=== PATIENT | female | born 2000 | race Caucasian/White ===

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

== ENCOUNTER 2021-01-06 14:07 | Outpatient (CLI) | payer MEDICAID | END 2021-01-06 14:08 | disposition left against medical advice (07) | LOC: EMS 14:07 | DX: S09.93XA Unspecified injury of face, initial encounter (principal); S89.92XA Unspecified injury of left lower leg, initial encounter; W01.0XXA Fall on same level from slipping, tripping and stumbling without subsequent striking against object, initial encounter; Y93.01 Activity, walking, marching and hiking; Y92.512 Supermarket, store or market as the place of occurrence of the external cause ==

== ENCOUNTER 2021-01-23 11:15 | Emergency (ER) | payer MEDICAID ==
[2021-01-23 11:32] VITALS: BP 146/92
[2021-01-23] MEDS ORDERED: METOCLOPRAMIDE 10 MG TABLET PO STA (12:09)
--- NOTE | 2021-01-23 12:11 | ED Physician Documentation ---
History of Present Illness - Stated complaint Stated Complaint: HEADACHES - Chief complaint Chief Complaint: General - History obtained from History obtained from: Patient, Family - Additonal information Additional information: 21-year-old woman presents accompanied by her mom after referral from PCP for headaches. She has a history of cerebral palsy, developmental delay. 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 She has occasional headaches but has had a more significant headache over the last week on the left side associated with no nausea or photophobia. They have tried sumatriptan and Toradol at home without relief. 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, Other - Present Medications Home Medications: Ambulatory Orders Medication Instructions Recorded Confirmed Ibuprofen 600 mg PO PRN PRN 09/02/15 02/01/20 Medroxyprogesterone Acetate 150 mg IM ONCE 09/02/15 02/01/20 [Depo-Provera] Hydroxyzine HCl 50 mg PO PRN PRN 12/23/15 02/01/20 Ondansetron Odt [Zofran] 4 mg TL Q6H PRN #10 tablet 08/06/19 02/01/20 Ketorolac [Toradol] 10 mg PO Q6H PRN 02/01/20 02/01/20 Metoclopramide [Reglan] 10 mg PO Q6H PRN #20 tablet 01/23/21 - Allergies Allergies/Adverse Reactions: Allergies Allergy/AdvReac Type Severity Reaction Status Date / Time phenytoin sodium * Allergy Severe Rash Verified 01/23/21 11:32 [From Dilantin] phenytoin sodium extended * Allergy Severe Rash Verified 01/23/21 11:32 [From Dilantin] clindamycin Allergy Rash Verified 01/23/21 11:32 - Social History Does the pt smoke?: No Smoking Status: Never smoker Does the pt drink ETOH?: No Does the pt have substance abuse?: No - Immunizations Immunizations are current?: Yes - POLST Patient has POLST: No PD ED PE NORMAL - Vitals Vital signs reviewed: Yes - General General: Other (Pleasant, developmentally delayed) - HEENT HEENT: PERRL, EOMI - Neck Neck: Supple, no meningeal sign, No bony TTP - Neuro Neuro: Alert and oriented X 3, 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 Her mental status is normal. Her exam shows I think just chronic neurologic findings. CT of the head and shuntogram demonstrates that there is a very low volume of fluid in the ventricular system, which may be suggestive of CSF hypotension indicating over shunting. A call was placed to [facility] to consult with her neurosurgeon. She was feeling better after oral Reglan. I discussed the case with the nurse practitioner on-call for [facility] neurosurgery and she will arrange for follow-up but there is no urgency to that. Departure - Departure Disposition: 01 Home, Self Care Clinical Impression: Persistent headaches Condition: Good Record reviewed to determine appropriate education?: Yes Instructions: ED Cephalgia Unspecified Prescriptions: Metoclopramide [Reglan] 10 mg PO Q6H PRN #20 tablet PRN Reason: nausea or headache Comments: There is a possibility that your shunt is over shunting, this would cause headaches but is not necessarily an emergency. I did discuss the case with [facility] and they plan to contact you for an appointment with your neurosurgeon to discuss. Return if worse.
--- NOTE | 2021-01-23 13:07 | CT Report ---
PROCEDURE: HEAD WO INDICATIONS: shunt, headache TECHNIQUE: Noncontrast 4.5 mm thick angled axial sections acquired from the foramen magnum to the vertex. For r adiation dose reduction, the following was used: automated exposure control, adjustment of mA and/or kV according to patient size. COMPARISON: None. FINDINGS: Images demonstrate post surgical changes of left pterional and parietal valeria holes. There is shunt tu dilan in the left frontal lobe which does not definitively communicate with the ventricular system. The ventricular system is low volume, with slitlike lateral ventricles nearly imperceptible. The thir d ventricle is also low in volume. The aqueduct and fourth ventricle are patent. The basilar cisterns are mildly effaced which may be due to brain sagging in the setting of CSF hypotension. Right to lef t midline shift is present at the level of the septum pellucidum and third ventricle, measuring a max imum of approximately 2.4 cm. No definite evidence of ventricular entrapment. There is some volume lo ss in the left cerebral cortex which may contribute to the shift. There is no evidence of an abnormal extra-axial fluid collection or acute intracranial hemorrhage. In the right cerebral hemisphere, mooney-white matter differentiation is maintained with no CT evidence o f acute infarct. There appears to be some thickened potentially heterotopic or dysplastic mooney matter in the left cere bral hemisphere with a lower than expected amount of white matter. Still, there is no evidence of cyt otoxic edema in the left cerebral hemisphere currently. Expansion of the diploic space throughout the calvarium, presumably reflective of phenytoin use in th is patient. No acute or suspicious osseous lesion. IMPRESSION: Post surgical changes of left sided bur holes. Shunt tubing in the left frontal lobe which does not definitively connected with the ventricular syst em. Very low volume of the ventricular system and additional findings suggestive of CSF hypotension m ay indicate over shunting. 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 Comparison with any prior outside study to assess for interval change in caliber of the ventricular s ystem. Reviewed by: David Valadez MD on 01/23/2021 1:05 PM PST Approved by: David Valadez MD on 01/23/2021 1:05 PM PST Station ID: [id number]
--- NOTE | 2021-01-23 13:08 | XRAY Report ---
PROCEDURE: Shuntogram INDICATIONS: shunt, headache TECHNIQUE: AP and lateral views of the head and neck and AP views of chest and abdomen were obtained for HOTHOUSE WORKER shunt evaluation. COMPARISON: Chest radiograph dated 10/15/2015. FINDINGS: There is a left-sided ventriculoperitoneal shunt catheter extending from right left frontal parietal region along lateral aspect of left chest and abdomen with tip in lower pelvis just to the right of m idline. The catheter appears continuous throughout its length without fracture. Markedly air distended bilateral frontal sinuses are seen. No gross skull fracture. Postsurgical swanson ges are seen in left frontal temporal parietal calvarium. There is no focal infiltrate, pleural effusion or pneumothorax. Heart size is normal. Bowel gas pattern is nonobstructive. No gross peritoneal free air is seen. IMPRESSION: 1. Left-sided HOTHOUSE WORKER shunt catheter appears intact. 2. No acute cardiopulmonary pathology. 3. No evidence of bowel obstruction no gross peritoneal free air. 4. Markedly air distended bilateral frontal sinuses and possibly ethmoid sinuses likely represent con genital process. Reviewed by: Sonny Brown MD on 01/23/2021 1:07 PM PST Approved by: Sonny Brown MD on 01/23/2021 1:07 PM PST Station ID: [id number]
== END 2021-01-23 13:51 | disposition home or self-care (01) ==
LOC: ED 11:15
DX: R51.9 Headache, unspecified (principal); Z98.2 Presence of cerebrospinal fluid drainage device; G80.9 Cerebral palsy, unspecified; G40.909 Epilepsy, unspecified, not intractable, without status epilepticus
CPT/HCPCS: 70450; 75809; 99283; 99284; A9270; 80053; 83690; 85025

== ENCOUNTER 2021-02-02 14:48 | Outpatient (CLI) | payer MEDICAID ==
--- NOTE | 2021-02-02 15:26 | SLEEP CARE CONSULTATION ---
Information from patient questionnaire entered by Zheng Shea. I have reviewed and concur with the information entered by Zheng Shea. This document represents the service I personally performed and the decisions made by me, Caroline Hunt MD, [facility]. History of Present Illness Service Date and Time: 02/02/2021 1448 Reason for Visit: New patient Chief Complaint: reports: Snoring, Excessive daytime sleepiness, Observed pauses in breathing Usual bedtime: 9 PM Time it takes to fall asleep: 20 - 30 minutes Snores at night: Yes Observed to quit breathing while asleep: Yes Number of times waking at night: 3 Reasons for waking at night: reports: Snoring, Gasping for air, Pain, Bathroom Toss, Turn, or Twitch while sleeping: Yes Recalls having dreams: Yes Usually gets out of bed at: 7 AM Feels refreshed in the morning: No Morning headache: Yes Sleepy or fatigued during the day: Yes Ever fallen asleep while driving: No Takes day naps: Yes Prior sleep studies: No Additional HPI information: I have the pleasure of seeing Ms. Hale along with her mother today regarding the possibility of her having obstructive sleep apnea. As you know, she is a 21 year old girl who complains of excessive daytime sleepiness. Her mother reports seeing her stop breathing at night. She also has morning headache. She sleeps 10 hours at night and takes 2-hour nap during the day. 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 Patient is Single and lives in [place]. Have you smoked in the past 12 months: No Alcohol use: No Caffeine use: Yes Caffeine amount and frequency: 3 to 4 a week Family History Family Hx Sleep Apnea: Grandparent: Sleep apnea - Untreated Allergies and Home Medications Drug allergies reviewed: Yes (dilantin and clindamycin) Home medication list reviewed: Yes (metoclopramide, Depo-Provera, Ketorolac, hydroxyzine) Review of Systems Neurological: reports: headaches, seizure, gait or balance problems Ear/Nose/Throat: reports: tonsillectomy Musculoskeletal: reports: mobility problems Physical Exam Blood Pressure: 129/91 Cuff size: regular Heart Rate: 96 O2 Saturation: 98 Height: 5 ft 3 in Weight: 280 lb Body Mass Index: 49.6 BMI Classification: Morbidly Obese Neck circumference: 19 Mood/affect: abnormal Nostrils: patent to airflow Turbinates: normal Septum: midline Mouth and throat: narrow oropharynx Soft palate: long Hard palate: normal Uvula: normal Uvula visualization: 25% Mallampati Class III Tongue: normal in size Tonsils: absent bilaterally Chin and jaw: normal size and position Neck: normal w/o lymphadenopathy or thyromegaly Heart: regular rate and rhythm Lungs: clear bilaterally Extremities: no edema or clubbing Impression and Plan IMPRESSION: 1. Obstructive Sleep Apnea-Hypopnea Syndrome, as evident by history of loud and irregular snoring, observed cessation of breath while asleep, frequent awakenings during the night, morning headache, unrefreshed sleep, and daytime hypersomnolence. Narrow oropharynx and obesity are common predisposing factors for obstructive sleep apnea-hypopnea syndrome. I recommend proceeding to polysomnography to confirm the diagnosis and to assess severity. If she has significant sleep disordered breathing, a manual CPAP titration study will also be performed to find the optimal treatment pressure. I informed the patient of what the sleep studies involve and after some discussion, she would like to first have a home sleep apnea test (HSAT), Plan: 1. Schedule a home sleep apnea test (HSAT). 2. Attempt to lose weight. 3. Return for follow up after the test. Visit Type: In Office Time Spent with Patient (minutes): 15 Provider Statement: I spent 100% of the Face to Face Visit with the patient with greater than 50% spent counseling the patient and coordination of care.
[2021-02-02 15:27] VITALS: BP 129/91
== END 2021-02-02 14:49 | disposition home or self-care (01) ==
LOC: SC 14:48
PROVIDERS: ATTEND Internal Medicine Pulmonary Disease
DX: G47.10 Hypersomnia, unspecified (principal); R06.81 Apnea, not elsewhere classified; R51.9 Headache, unspecified; G47.8 Other sleep disorders; E66.01 Morbid (severe) obesity due to excess calories; Z68.42 Body mass index [BMI] 45.0-49.9, adult
CPT/HCPCS: 99202; 99212

== ENCOUNTER 2021-02-23 08:10 | Outpatient (CLI) | payer MEDICAID ==
--- OUTSIDE RECORDS SUMMARY | 2021-02-25 02:57 | EXTERNAL MEDICAL SUMMARY RPT | Continuity of Care Document ---
:2000 Demographics Phone Unavailable Preferred Language Unknown Marital Status Unknown Adventism Affiliation Unknown Race Unknown Ethnic Group Unknown Author Organization [facility] Address [address] [place] [address] Phone Social History date description facility [phone]
== END 2021-02-23 08:11 | disposition home or self-care (01) ==
LOC: SC 08:10
PROVIDERS: ATTEND Internal Medicine Pulmonary Disease
DX: G47.33 Obstructive sleep apnea (adult) (pediatric) (principal); R09.02 Hypoxemia; E66.9 Obesity, unspecified; Z68.42 Body mass index [BMI] 45.0-49.9, adult
CPT/HCPCS: 95806

== ENCOUNTER 2021-03-02 14:49 | Outpatient (CLI) | payer MEDICAID ==
--- NOTE | 2021-03-02 15:15 | SLEEP CARE CONSULTATION ---
Information from patient questionnaire entered by Zheng Shea. I have reviewed and concur with the information entered by Zheng Shea. This document represents the service I personally performed and the decisions made by me, Caroline Hunt MD, [facility]. History of Present Illness Service Date and Time: 03/02/2021 1449 Initial [place] Sleepiness Scale score: 19 (in 2020) Current [place] Sleepiness Scale score: 10 Additional HPI information: HPI: Ms. Hale returned for follow up of the sleep study she had on 02/23/2021. The test showed mild obstructive sleep apnea-hypopnea with an AHI of 7.3 and aura oxygen saturation of 77%. The respiratory events occurred independently of sleep stage and body position. Baseline oxygen saturation was normal. The patient was informed of these findings. I explained to her the pathophysiology behind obstructive sleep apnea. We then spent quite a bit of time discussing different treatment options. For mild obstructive sleep apnea, surgery and oral appliance are alternatives to nasal CPAP therapy but in moderate or severe cases, nasal CPAP is the most effective and reliable treatment. She already had tonsillectomy. After some discussion, she opted to go with the nasal CPAP therapy. I explained to her how CPAP machine works and what to expect when using the machine. Sleep Study - Results Type of Sleep Study: Home sleep study Prior sleep studies: No Allergies and Home Medications Drug allergies reviewed: Yes Home medication list reviewed: Yes Review of Systems Review of systems same as previous: Yes Physical Exam Height: 5 ft 3 in Weight: 280 lb Body Mass Index: 49.6 BMI Classification: Morbidly Obese Impression and Plan IMPRESSION: 1. Obstructive Sleep Apnea-Hypopnea Syndrome, mild, associated with moderate hypoxemia. Possibly, this is the cause of the patients symptoms of unrefreshed sleep, and excessive daytime sleepiness. As mentioned above, the patient will be started on an autoCPAP set between 5 and 15 cmH2O. Depending on her response and compliance she may be brought back for an overnight CPAP titration study. PLAN: 1. Prescription made for an autoCPAP, heated humidifier, and related supplies. 2. Attempt to lose weight. 3. Return for follow up after one month of using the CPAP. Counseling Topics: Weight control Visit Type: In Office Other Participants: Other (mother) Time Spent with Patient (minutes): 15 Provider Statement: I spent 100% of the Face to Face Visit with the patient with greater than 50% spent counseling the patient and coordination of care.
== END 2021-03-02 14:50 | disposition home or self-care (01) ==
LOC: SC 14:49
PROVIDERS: ATTEND Internal Medicine Pulmonary Disease
DX: G47.33 Obstructive sleep apnea (adult) (pediatric) (principal); E66.01 Morbid (severe) obesity due to excess calories; Z68.42 Body mass index [BMI] 45.0-49.9, adult
CPT/HCPCS: 99212

== ENCOUNTER 2021-05-11 09:46 | Outpatient (CLI) | payer MEDICAID ==
--- NOTE | 2021-05-11 10:43 | SLEEP CARE CONSULTATION ---
Information from patient questionnaire entered by Delmi Melendez. I have reviewed and concur with the information entered by Delmi Melendez. This document represents the service I personally performed and the decisions made by me, Caroline Hunt MD, [facility]. History of Present Illness Service Date and Time: 05/11/2021 0946 Previous diagnosis: Mild, Obstructive Sleep Apnea-Hypopnea Syndrome AHI: 7.3 (in 2020) Reason for follow up: first compliance Equipment type: CPAP Equipment obtained from: Other ([facility]) Mask style: Nasal Prior sleep studies: Yes Year and Where: 2020 - [facility] Type of Sleep Study: Home sleep study HPI additional information: HPI: Ms. Hale returned today with her mother for follow up of nasal CPAP therapy. She was diagnosed to have mild obstructive sleep apnea-hypopnea syndrome. The patient went to [facility] for the equipment and was fitted with a Respironics DreamWear nasal cushion mask.. She reports using the device nightly and all through the night. The compliance report shows usage in 30 nights out of the past 30 nights, averaging 7 hours a night. She complained of no particular problem with the device such as soreness on the face, dry nose, epistaxis, nasal congestion or headache. She thinks that the pressure of 5 - 15 cmH2O is comfortable. On the CPAP therapy she notices improvement in her sleep quality, and that she wakes up feeling fresher in the morning and more awake/alert during the day. The [place] Sleepiness Scale score 4. Her mother notices no snore at all. The average residual AHI is 0.2; and air leak, 0.2 L/min. The 90th percentile pressure is 12.2 cmH2O. CPAP Compliance Data - Data Reviewed with Patient Average duration of nightly device use: 7 hr Compliance rate %: 100 Current pressure setting (cmH2O): 5-15 Humidity settin Average residual AHI: 0.2 Subjective Current pressure setting perceived as: comfortable Initial [place] Sleepiness Scale score: 19 (in 2020) Current [place] Sleepiness Scale score: 4 Allergies and Home Medications Drug allergies reviewed: Yes Home medication list reviewed: Yes Review of Systems Review of systems same as previous: Yes Physical Exam Height: 5 ft 3 in Weight: 303 lb Body Mass Index: 53.6 BMI Classification: Morbidly Obese Impression and Plan IMPRESSION: 1. Obstructive Sleep Apnea-Hypopnea Syndrome, mild, with the patient doing well on nasal CPAP therapy. She has excellent compliance and significant clinical improvement. The current pressure appears effective and comfortable. Overall, she is very satisfied with treatment and plans to continue with it long-term. No adjustment is necessary today. PLAN: 1. Continue with autoCPAP set at 5 - 15 cmH2O. 2. Try to lose weight 3. Try other masks and nasal pillows. 4. Return in one year for follow up or earlier if there is any problem with the treatment. Follow up recommended for: Weight management Visit Type: In Office Time Spent with Patient (minutes): 15 Provider Statement: I spent 100% of the Face to Face Visit with the patient with greater than 50% spent counseling the patient and coordination of care.
== END 2021-05-11 09:47 | disposition home or self-care (01) ==
LOC: SC 09:46
PROVIDERS: ATTEND Internal Medicine Pulmonary Disease
DX: G47.33 Obstructive sleep apnea (adult) (pediatric) (principal); E66.01 Morbid (severe) obesity due to excess calories; Z68.43 Body mass index [BMI] 50.0-59.9, adult
CPT/HCPCS: 99212

== ENCOUNTER 2022-09-29 14:45 | Emergency (ER) | payer MEDICAID ==
[2022-09-29 15:28] LABS: BASOPHILS % (AUTO) 0.1 %; HCT - HEMATOCRIT 41.1 % (37.0-47.0); HGB - HEMOGLOBIN 13.7 g/dL (12.0-16.0); LYMPHOCYTES # (AUTO) 3.1 10^3/uL (1.5-3.5); LYMPHOCYTES % (AUTO) 38.3 %; MEAN CORPUSCULAR HEMOGLOBIN 26.9 pg (27.0-31.0); MEAN CORPUSCULAR HGB CONC 33.3 g/dL (32.0-36.0); MEAN CORPUSCULAR VOLUME 80.7 fL (81.0-99.0); MEAN PLATELET VOLUME 8.8 fL (7.9-10.8); MONOCYTES # (AUTO) 0.3 10^3/uL (0.0-1.0); MONOCYTES % (AUTO) 3.5 %; NEUTROPHILS # (AUTO) 4.7 10^3/uL (1.5-6.6); NEUTROPHILS % (AUTO) 57.7 %; PLT - PLATELET COUNT 270 10^3/uL (130-450); RED BLOOD COUNT 5.09 10^6/uL (4.20-5.40); RED CELL DISTRIBUTION WIDTH 13.8 % (12.0-15.0); WHITE BLOOD COUNT 8.1 x10^3/uL (4.8-10.8)
[2022-09-29 15:43] LABS: ALBUMIN 4.1 g/dL (3.2-5.5); ALBUMIN/GLOBULIN RATIO 1.4 (1.0-2.2); BILIRUBIN,TOTAL 0.4 mg/dL (0.2-1.0); CALCIUM 9.2 mg/dL (8.5-10.3); CREATININE 0.8 mg/dL (0.4-1.0); POTASSIUM 3.7 mmol/L (3.5-5.0); TOTAL PROTEIN 7.1 g/dL (6.7-8.2)
--- NOTE | 2022-09-29 17:51 | ED Physician Documentation ---
History of Present Illness - Stated complaint Stated Complaint: ABD PX - Chief complaint Chief Complaint: Abd Pain - Additonal information Additional information: 22-year-old female who is developmentally delayed presents to the emergency de partment with her mom for evaluation of 4 days right upper quadrant abdominal pain. No fevers no vomiting no diarrhea. They did go to a local walk-in clinic and were reportedly told that the urine showed no concerns but given the location of the pain was advised to come to the ER for a gallbladder rule out. Patient has no pertinent past surgical history. She appears well and per mom she is behaving at her usual baseline. No melena or hematochezia. No dysuria urgency or frequency. Review of Systems Constitutional: denies: Fever Eyes: reports: Reviewed and negative Throat: reports: Reviewed and negative Cardiac: reports: Reviewed and negative Respiratory: reports: Reviewed and negative GI: reports: Abdominal Pain. denies: Nausea, Vomiting : reports: Reviewed and negative Skin: reports: Reviewed and negative PD PAST MEDICAL HISTORY - Past Medical History Past Medical History: Yes Cardiovascular: None Respiratory: None Neuro: Seizure disorder, Other Endocrine/Autoimmune: None GI: None CONE TRUCKER: None : None HEENT: None Psych: None Musculoskeletal: Hemiplegia Derm: None Other Past Medical History: cerebral palsy - Past Surgical History Past Surgical History: Yes Neuro: CERTIFIED MEDICAL TECHNICIAN shunt, Other - Present Medications Home Medications: Ambulatory Orders Medication Instructions Recorded Confirmed No Known Home Medications 09/29/22 09/29/22 - Allergies Allergies/Adverse Reactions: Allergies Allergy/AdvReac Type Severity Reaction Status Date / Time phenytoin sodium * Allergy Severe Rash Verified 09/29/22 15:09 [From Dilantin] phenytoin sodium extended * Allergy Severe Rash Verified 09/29/22 15:09 [From Dilantin] clindamycin Allergy Rash Verified 09/29/22 15:09 - Social History Does the pt smoke?: No Smoking Status: Never smoker Does the pt drink ETOH?: No Does the pt have substance abuse?: No - Immunizations Immunizations are current?: Yes - POLST Patient has POLST: No PD ED PE NORMAL - General General: Alert and oriented X 3, No acute distress, Well developed/nourished (Morbidly obese) - HEENT HEENT: Atraumatic, Moist mucous membranes - Neck Neck: Supple, no meningeal sign, No adenopathy - Cardiac Cardiac: RRR, No murmur - Respiratory Respiratory: No respiratory distress, Clear bilaterally - Abdomen Abdomen: Normal bowel sounds, Soft. No: Non tender (Mild tenderness in the right upper quadrant. No guarding or rebound. Mild tenderness also elicited on the left flank.) - Back Back: No CVA TTP, No spinal TTP - Derm Derm: Normal color, Warm and dry - Extremities Extremities: No deformity, No tenderness to palpate, Normal ROM s pain - Neuro Neuro: Alert and oriented X 3, medical data analyst 2-12 intact Eye Opening: Spontaneous Motor: Obeys Commands Verbal: Oriented GCS Score: 15 Results - Vitals Vitals: Vital Signs - 24 hr 09/29/22 09/29/22 09/29/22 15:04 18:08 20:13 Temperature 36.6 C 36.6 C 35.9 C L Heart Rate 89 85 85 Respiratory 18 17 16 Rate Blood Pressure 135/88 H 149/85 H 125/85 H O2 Saturation 98 99 100 Oxygen O2 Source Room air - Labs Labs: Laboratory Tests 09/29/22 09/29/22 09/29/22 15:24 15:24 17:58 WBC 8.1 RBC 5.09 Hgb 13.7 Hct 41.1 MCV 80.7 L MCH 26.9 L MCHC 33.3 RDW 13.8 Plt Count 270 MPV 8.8 Neut # (Auto) 4.7 Lymph # (Auto) 3.1 Sharkey # (Auto) 0.3 Eos # (Auto) 0.0 Baso # (Auto) 0.0 Absolute Nucleated RBC 0.00 Nucleated RBC % 0.0 Sodium 139 Potassium 3.7 Chloride 107 Carbon Dioxide 21 Anion Gap 11.0 BUN 12 Creatinine 0.8 Estimated GFR (MDRD) 91 Glucose 98 Calcium 9.2 Total Bilirubin 0.4 AST 14 ALT 27 Alkaline Phosphatase 86 Total Protein 7.1 Albumin 4.1 Globulin 3.0 Albumin/Globulin Ratio 1.4 Lipase 27 Urine Color Urine Clarity Urine pH Ur Specific [place] Urine Protein Urine Glucose (UA) Urine Ketones Urine Occult Blood Urine Nitrite Urine Bilirubin Urine Urobilinogen Ur Leukocyte Esterase Ur Microscopic Review Urine Culture Comments Urine HCG, Qual NEGATIVE 09/29/22 17:58 WBC RBC Hgb Hct MCV MCH MCHC RDW Plt Count MPV Neut # (Auto) Lymph # (Auto) Sharkey # (Auto) Eos # (Auto) Baso # (Auto) Absolute Nucleated RBC Nucleated RBC % Sodium Potassium Chloride Carbon Dioxide Anion Gap BUN Creatinine Estimated GFR (MDRD) Glucose Calcium Total Bilirubin AST ALT Alkaline Phosphatase Total Protein Albumin Globulin Albumin/Globulin Ratio Lipase Urine Color YELLOW Urine Clarity CLEAR Urine pH 6.0 Ur Specific [place] 1.020 Urine Protein NEGATIVE Urine Glucose (UA) NEGATIVE Urine Ketones NEGATIVE Urine Occult Blood NEGATIVE Urine Nitrite NEGATIVE Urine Bilirubin NEGATIVE Urine Urobilinogen 0.2 (NORMAL) Ur Leukocyte Esterase NEGATIVE Ur Microscopic Review NOT INDICATED Urine Culture Comments NOT INDICATED Urine HCG, Qual - Rads (name of study) CT abd Radiology: Final report received (No acute intra-abdominal process.) PD MEDICAL DECISION MAKING - ED course Complexity details: reviewed results, re-evaluated patient, considered differential, d/w patient ED course: Well-appearing 22-year-old female who has a history of developmental delay as well as a CERTIFIED MEDICAL TECHNICIAN shunt presents to the emergency department for evaluation of right upper quadrant abdominal pain. On exam she has no peritoneal signs and a negative Triplett's. Her CBC and electrolytes were without acute findings. Her urine showed no worrisome findings. Patient's mother was concerned that this likely could be cholecystitis that she had similar at the same age. I discussed with mom that I felt this was unlikely given the normal liver function tests and lack of bilirubin elevation however given the patient's developmental delay and morbid obesity/body habitus limiting exam we did proceed to do a CT of the abdomen that was unremarkable. On reexam the patient is free of pain and he she is discharged home in stable condition. Emergent return precautions discussed. Departure - Departure Disposition: 01 Home, Self Care Clinical Impression: Right upper quadrant abdominal pain Condition: Stable Record reviewed to determine appropriate education?: Yes Comments: Shira came to the emergency department because she had some pain in her upper right abdomen today. Here in the emergency department her CBC electrolytes and urine were all normal without findings of infection. The CT of her abdomen also did not show any concerns for cholecystitis, acute appendicitis kidney stones or problems with her intestines. Her CERTIFIED MEDICAL TECHNICIAN shunt is in good position. Continue follow-up with her primary care provider. Return to the ER for any other emergent concerns
[2022-09-29 18:11] LABS: BILIRUBIN,URINE NEGATIVE (NEGATIVE); GLUCOSE, URINE (UA) NEGATIVE (NEGATIVE); KETONES,URINE (UA) NEGATIVE (NEGATIVE); LEUKOCYTE ESTERASE, URINE NEGATIVE (NEGATIVE); NITRITE,URINE NEGATIVE (NEGATIVE); OCCULT BLOOD,URINE NEGATIVE (NEGATIVE); PROTEIN,URINE NEGATIVE (NEGATIVE); UROBILINOGEN,URINE 0.2 (NORMAL) E.U./dL (NORMAL)
[2022-09-29 18:12] LABS: CLARITY,URINE CLEAR (CLEAR)
[2022-09-29 18:14] LABS: HCG UR QUAL NEGATIVE
[2022-09-29] MEDS ORDERED: iohexoL-300 100 ML VIAL ONE (18:23)
--- NOTE | 2022-09-29 19:26 | CT Report ---
PROCEDURE: ABDOMEN/PELVIS WO INDICATIONS: RUQ abd pain TECHNIQUE: Noncontrast 5 mm thick sections acquired from the diaphragms to the symphysis. 5 mm coronal and sagi ttal reformats were then performed. For radiation dose reduction, the following was used: automated exposure control, adjustment of mA and/or kV according to patient size. COMPARISON: None. FINDINGS: Image quality: Adequate. Visualized lung bases: No pleural effusion. Liver and biliary tree: Unremarkable noncontrast appearance. Gallbladder: No radiopaque cholelithiasis. Spleen: Unremarkable noncontrast appearance. Pancreas: Unremarkable noncontrast appearance. Adrenal glands: Unremarkable noncontrast appearance. Kidneys and ureters: No hydronephrosis. Gastrointestinal tract: No bowel obstruction. No definite evidence of acute appendicitis. Peritoneal cavity: Left abdominal wall catheter tip terminates in the right lower quadrant, possible ventricular shunt catheter. Small amount of pelvic free fluid present. No free air. Bladder: Unremarkable noncontrast appearance. Pelvic organs: Unremarkable noncontrast CT appearance. Vasculature: No abdominal aortic aneurysm. Musculoskeletal: Degenerative change of the spine. IMPRESSION: No urinary stone or hydroureteronephrosis. Reviewed by: Nba Sosa MD on 09/29/2022 7:25 PM PST Approved by: Nba Sosa MD on 09/29/2022 7:25 PM PST Station ID: [id number]
[2022-09-29 20:14] VITALS: BP 125/85
== END 2022-09-29 20:48 | disposition home or self-care (01) ==
LOC: ED 14:45
DX: R10.11 Right upper quadrant pain (principal)
CPT/HCPCS: 36415; 80053; 81001; 81003; 81025; 83690; 85025; 87086; 99282; 99284

== ENCOUNTER 2024-02-28 13:44 | Outpatient (CLI) | payer MEDICAID ==
--- NOTE | 2024-02-28 21:08 | XRAY Report ---
PROCEDURE: Chest 2V INDICATIONS: RIB PAIN, LEFT SIDED TECHNIQUE: 2 views of the chest were acquired. COMPARISON: Chest radiographs 10/15/2015. FINDINGS: Surgical changes and devices: Ventriculoperitoneal shunt catheter is partially imaged and appears gr ossly intact.. Lungs and pleura: No pleural effusions or pneumothorax. Lungs are clear. Mediastinum: Mediastinal contours appear normal. Heart size is normal. Bones and chest wall: No suspicious bony lesions. Overlying soft tissues appear unremarkable. IMPRESSION: No acute cardiopulmonary process. Reviewed by: Nba Arzate MD on 02/28/2024 9:07 PM PDT Approved by: Nba Arzate MD on 02/28/2024 9:07 PM PDT Station ID: [id number]
== END 2024-02-28 13:45 | disposition home or self-care (01) ==
LOC: DI.N 13:44
PROVIDERS: ATTEND Physician Assistant
DX: R07.81 Pleurodynia (principal)